=== PATIENT | male | born 1965 | race Caucasian/White ===

== ENCOUNTER 2023-11-28 12:07 | Outpatient (OUT) | payer OTHER, SELFPAY ==
--- NOTE | 2023-11-28 12:55 | P.CN_ITS ---
Consult Note: HPI Data of Consult Patient: new to practice Consult date: 11/28/23 Requesting Physician: Jagruti Villalta MD Primary Care Provider: CATRACHO MOSER Consult Narrative Reason for consult: bilateral upper extremity pain, elbow pain Narrative: 58yom who presents for evaluation. notes persistence of pain in bilateral elbows for several months, as well as pain that radiates into first three fingers of bilateral hands. also goes up to left shoulder. imaging consistent with degenerative changes of elbows. no mri of neck. completed >6 weeks of provider directed home exercise program without benefit. uses nabumetone, with some benefit. denies adverse med side effects. cc:: CC: Jagruti Villalta MD Review of Systems ROS Status of ROS 10 or more systems reviewed and unremark able except as noted in history and below Exam Narrative Exam Narrative: Psych-alert and oriented x 3.? Attentive and appropriate, constitutionally normal, displays normal mood and affect per situation.? There are no obvious deficits in memory, reasoning, or intellect.? Skin-no obvious rashes, bruising, or erythema noted to the patient's area of pain.? Extremities-upper extremities are warm with minimal edema and palpable pulses. Tender to palpation in bilateral elbows. Cervical- tenderness to palpation noted in the cervical spine and paraspinal musculature.? Pain is elicited with flexion, extension, and lateral rotation of the cervical spine.? Range of motion is diminished due to pain. Facet loading maneuvers are negative.? Strength-unremarkable and within normal limits with the exception to the left biceps.? Sensory-no notable sensory deficits in the bilateral upper extremities to touch or pinprick with the exception to decreased sensation to the left C5, 6 dermatomal distribution.? Coordination remains intact.? Gait remains non-antalgic. Assessment and Plan Assessment and Plan (1) Cervical stenosis of spinal canal: (2) Bilateral elbow joint pain: Plan 58yom who presents for evaluation. failed conservative measures, as noted. imaging reviewed, as noted. given symptoms, prudent to attempt bilateral elbow joint injections in office. he is in agreement. would also benefit from cervical mri without contrast, given radiating component in both upper extremities. meds reviewed, no changes. follow up after mri.
== END 2023-11-28 12:08 | disposition home or self-care (01) ==
LOC: PM 12:07
PROVIDERS: PCP Nurse Practitioner Family; Visit Provider Anesthesiology
DX: M48.02 Spinal stenosis, cervical region (principal); M25.521 Pain in right elbow; M25.522 Pain in left elbow
CPT/HCPCS: G0463

== ENCOUNTER 2023-12-12 13:39 | Outpatient (OUT) | payer OTHER, SELFPAY ==
--- OUTSIDE RECORDS SUMMARY | 2023-12-12 14:00 | XMS_ITS ---
Patient Summarization (C-CDA 2.1 CCD) Created on: December 12, 2023 Phong Fernandez : 1965 Sex: Male Author Organization Sample organization Care Team Providers Care Spanish Language Lecturer Name Role Phone RUDDY, DR TANG Admitting Unavailable [facility] [place], DR TANG Attending Unavailable VALATIE, DR DOBSON Primary Care Unavailable VALATIE, DR DOBSON Admitting Unavailable VALATIE, DR DOBSON Attending Unavailable VALATIE, DR DOBSON Primary Care Unavailable VALATIE, DR DOBSON Consulting Unavailable AMARILIS, DR EILZA Plunkett Consulting Unavailable [place], Stephen Primary Care Unavailable John, Roni Morillo Attending Gee Lopez, Roni Morillo Admitting Gee Villalta MD, Jagruti Salazar Unavailable Encounters Encounter Date Encounter Type Care Provider Facility Start: 11-28-2023 End: 11-29-2023 ambulatory Jagruti Villalta MD Facility:[facility] Start: 02-23-2023 End: 02-23-2023 Emergency department patient visit Stephen Lala Facility:[facility] Start: 10-16-2021 End: 10-17-[address] STEPHEN LALA Facility: Start: 02-09-2021 End: 06-11-[address] DOCTOR FOX Facility: Payers Date Payer Category Payer Private Health Insurance 2023 Private Health Insurance [id number] 2023 Self-pay 2019 Unknown [id number] 1965 Unknown [id number] 1965 Unknown [id number] 1965 Unknown [id number] [id number]. [id number] 1959 Unknown [id number] Unknown [id number] [id number] Problems Problem Classification Problem Date Documented Da te Episodic/Chronic Other connective tissue disease (4 sources) Presence of right artificial hip joint; Translations: [PRESENCE RIGHT ARTIFICIAL HIP JOINT] Onset: 02-09-2021 Chronic Other non-traumatic joint disorders (4 sources) Pain in right knee; Translations: [PAIN IN RIGHT KNEE] Onset: 10-16-2021 Episodic Sprains and strains (1 source) Strain of unspecified muscle, fascia and tendon at shoulder and upper arm level, unspecified arm, initial encounter; Translations: [Strain of unspecified muscle, fascia and tendon at shoulder and upper arm level, unspecified arm, initial encounter] Onset: 02-23-2023 Episodic Unclassified (1 source) Pain in left elbow; Translations: [Pain in left elbow] Onset: 02-23-2023 Results Test Name Value Interpretation Reference Range Facil ity XR elbow LT min 3V*on 2022 XR elbow LT min 3V* [place] [address] XRay Report Signed Patient: Phong Fernandez Jr MR#: [id number] : 1965 Acct:[id number] Age/Sex: 58 / M ADM Date: 02/23/23 Loc: ER Room: Type: PRE ER Attending Dr: Copies to: Roni Lopez MD Ordering Provider: Roni Lopez MD Date of Service: 02/23/23 XR/XR elbow LT min 3V*: Extremity Injury, Upper 4 views leftelbow plain film COMPARISON :None HISTORY: Popping sensation left elbow. Continued left elbow pain. ACUTE FINDINGS: None DEGENERATIVE CHANGE: Degenerative marginal spurring. Chronic changes involving the medial condyle. SOFT TISSUE FINDINGS: Unremarkable JOINT EFFUSION: None POSTOP CHANGES: None BONE MINERALIZATION: Adequate XR/XR elbow LT min 3V* IMPRESSION: Degenerative change. No acute bony findings. Impression dictated by: Ashok Quintana M.D.02/23/2023 8:51 AM Dictation Location: [place] [address] Transcribed By: [facility] 02/23/23 0851 Dictated By: Ashok Quintana DO 02/23/23 0850 Signed By: 02/23/23 0851 [facility] Clinical Note 04-08-2022 Note Date & Type Note Facility 10-16-2021 Note PROCEDURE: XR KNEE R T 4V or > HISTORY: Pain in right knee ; chronic medial patellar knee pain COMPARISON: None. FINDINGS: BONES:No fracture, acute abnormality, or significant arthropathy. SOFT TISSUES:No visible soft tissue swelling. EFFUSION:Tiny joint effusion. OTHER: Negative. IMPRESSION: 1. No acute bone abnormality or significant degenerative changes. 2. Tiny joint effusion of uncertain etiology. Electronically authenticated by: ELIZA OLMOS Date: 2021-10-16 12:57 [facility] Summary Purpose Family History No Family History Records FoundNo Family History Records FoundNo Family History Records Found Advance Directives No Advanced Directives Records FoundNo Advanced Directives Records FoundNo Advanced Directives Records Found Additional Source Comments (unrecognized sect ion and content) No Status Records FoundNo Status Records FoundNo Status Records Found INFORMATION SOURCE (unrecogn ized section and content) DATE CREATED AUTHOR 10/26/2021 [facility] DATE CREATED AUTHOR AUTHOR'S ORGANIZ ATION 03/12/2023 [facility] DATE CREATED AUTHOR AUTHOR'S ORGANIZ ATION 12/04/2023 [facility] FOR RECORDS PERTAINING TO PATIENTS WHO ARE OR HAVE BEEN ENROLLED IN A CHEMICAL DEPENDENCY/SUBSTANCEABUSE PROGRAM, SOME INFORMATION MAY BE OMITTED. This clinical summary was aggregated from multiple sources. Caution should be exercised in using it in the provision of clinical care. This summary normalizes information from multiple sources, and as a consequence, information in this document may materially change the coding, format and clinical context of patient data. In addition, data may be omitted in some cases. CLINICAL DECISIONS SHOULD BE BASED ON THE PRIMARY CLINICAL RECORDS. [facility]. provides no warranty or guarantee of the accuracy or completeness of information in this document.
--- NOTE | 2023-12-12 14:17 | P.CN_ITS ---
Consult Note: HPI Data of Consult Patient: known to practice within the last 3 years Consult date: 12/12/23 Requesting Physician: Jagruti Villalta MD Primary Care Provider: CATRACHO MOSER Consult Narrative Reason for consult: bilateral elbow pain Narrative: 58yom who presents for in office injection. continues to have bilateral elbow pain, would like to proceed with bilateral elbow injection. cc:: CC: Jagruti Villalta MD Review of Systems ROS Status of ROS 10 or more systems reviewed and unremark able except as noted in history and below Exam Narrative Exam Narrative: Psych-alert and oriented x 3.? Attentive and appropriate, constitutionally normal, displays normal mood and affect per situation.? There are no obvious deficits in memory, reasoning, or intellect. Extremities-lower extremities are warm with minimal edema and palpable pulses. Elbow - examination of the bilateral elbow reveals tenderness to palpation over the bilateral elbow joint. Pain is elicited with flexion and extension of the elbow both actively and passively.? Coordination remains intact.? Gait remains antalgic. Assessment and Plan Assessment and Plan (1) Bilateral elbow joint pain: Plan 58yom who presents for in office injection. continues to have bilateral elbow pain, would like to proceed with bilateral elbow injections. Procedure: Bilateral elbow joint injection Medications: Bupivacaine 0.25% 2cc, kenalog 40mg x2 I explained the details of the procedure to the patient including the risks, benefits and alternatives. We had an informed discussion and the patient verbalized understanding and signed the consent form. All questions were answered appropriately.? A time out was performed.? After obtaining a comfortable seated position, the left elbow was prepped with alcohol. A syringe containing the above medication was attached to a 27 guage, 1.5 inch needle under strict aseptic technique.?The lateral epicondyle, olecranon process, and radial head were palpated. The center of these points was palpated. The needle was advanced through the subcutaneous tissue towards the joint space at this center point.? The contents of the syringe were gently injected without any resistance. The needle was removed and pressure was applied to the injection site to decrease the incidence of ecchymosis and hematoma formation.? A sterile bandage was applied. The same procedure was then completed on the right side.
== END 2023-12-12 13:40 | disposition home or self-care (01) ==
LOC: PM 13:39
PROVIDERS: PCP Nurse Practitioner Family; Visit Provider Anesthesiology
DX: M25.521 Pain in right elbow (principal); M25.522 Pain in left elbow
CPT/HCPCS: 20605

== ENCOUNTER 2023-12-16 06:46 | Outpatient (OUT) | payer OTHER, SELFPAY ==
--- NOTE | 2023-12-16 06:48 | MR_ITS ---
[address] [address] Patient Name: NERI ROSSI MRN: [id number] date: 1965 Sex: M Assigned Patient Location: MRI Current Patient Location: Accession/Order Number: [id number] Exam Date: 12/16/2023 07:00 Report Date: 12/17/2023 06:55 At the request of: MARLENY JULIAN Procedure: MR cervical spine wo con EXAMINATION: MR cervical spine wo con HISTORY: cervical stenosis ; chronic cervical pain with radiculopathy COMPARISON: No relevant comparison available. TECHNIQUE: A variety of imaging planes and parameters were utilized for visualization of suspected pathology without and/or with intravenous Dotarem contrast based on examination type. FINDINGS: CRANIOCERVICAL AREA: Normal foramen magnum with no Chiari malformation. PARASPINAL AREA: Normal with no visible mass. BONES: Straightening of normal lordotic curvature. No fracture or spondylolisthesis. CORD: Normal caliber, contour, and signal intensity. CERVICAL DISC LEVELS: C2-C3: Early degenerative disc disease is present without focal protrusion or neural impingement. C3-C4: Early degenerative disc disease is present without focal protrusion or neural impingement. C4-C5: Moderate right foramen narrowing secondary to vertebral joint spurring. No significant disc bulging. C5-C6: Mild central canal and moderate bilateral foramen narrowing secondary to mild diffuse disc bulging and slight disc height reduction. Bilateral uncovertebral joint spurring and minimal facet arthropathy. C6-C7: Mild central canal and right foramen narrowing. Moderate left foramen narrowing. Mild diffuse disc bulging with minimal disc height reduction. No vertebral joint spurring and slight degenerative facet arthropathy. C7-T1:. No significant disc/facet abnormality, spinal stenosis, or foraminal stenosis. MR/MR cervical spine wo con IMPRESSION: 1. Straightening of normal lordotic curvature; positioning versus muscle spasm. 2. Mild and moderate foramen narrowing and central canal narrowing C4-C5 through C6-C7 as detailed above. 3. Multiple mucocele/retention cysts incidentally seen within the paranasal maxillary sinuses compatible with chronic sinusitis. Electronically authenticated by: ELIZA OLMOS Date: 12/17/2023 06:55
--- OUTSIDE RECORDS SUMMARY | 2023-12-16 06:49 | XMS_ITS | CCD ---
Author Organization [facility] Care Team Providers Care Embedded Linux Engineer Name Role Phone RUDDY, DR TANG Admitting Unavailable [facility] [place] TANG Attending Unavailable HOUSE, DR DOBSON Primary Care Unavailable HOUSE, DR DOBSON Admitting Unavailable HOUSE, DR DOBSON Attending Unavailable DYESS, DR DOBSON Primary Care Unavailable DYESS, DR DOBSON Consulting Unavailable AMARILIS, DR ELIZA Plunkett Consulting Unavailable [place], Stephen Primary Care Unavailable John, Roni Morillo Attending Unavailable John, Roni Morillo Admitting Unavailable Ambar MONTENEGRO, Jagruti Padilla Attending Unavailable Problems Problem Classification Problem Date Documented Da [...] 3V*on 2022 XR elbow LT min 3V* [facility] Main [place] [address] [place] [address] XRay Report Signed Patient: Phong Fernandez Jr MR#: [id number] : 1965 Acct:[id number] Age/Sex: 58 / M ADM Date: 02/23/23 [...] Ashok Quintana M.D.02/23/2023 8:51 AM Dictation Location: [facility] Transcribed By: [facility] 02/23/23 0851 Dictated By: Ashok Quintana DO 02/23/2350 Signed By: 02/23/2351 [facility] Encounters Encounter Date Encounter Type Care Provider Facility Start: 11-28-2023 End: 11-29-2023 ambulatory Jagruti Villalta MD Facility:[facility] Start: 02-23-2023 End: 02-23-2023 Emergency department patient visit Stephen Lala Facility:[facility] Start: 10-16-2021 End: 10-17-[address] STEPHEN LALA Facility: Start: 02-09-2021 End: 06-11-[address] DOCTOR FOX Facility: Payers Date Payer Category Payer Private Health Insurance 2023 Private Health Insurance [id number] 2023 Self-pay 2019 Unknown [id number] 1965 Unknown [id number] [id number] 1965 Unknown [id number] 1965 Unknown [id number] 2.16. [id number] 1959 Unknown [id number] Unknown [id number] 2.16.8 [id number] Clinical Note 10-16-2021 Note Date & Type Note Facility 10-16-2021 [...] authenticated by: ELIZA OLMOS Date: 2021-10-16 12:57 [facility] Summary Purpose Family History No Family History Records FoundNo Family History Records FoundNo Family History Records Found Advance Directives No Advanced Directives Records FoundNo Advanced Directives Records FoundNo Advanced Directives Records Found Additional Source Comments (unrecognized sect ion and content) No Status Records FoundNo Status Records FoundNo Status Records Found INFORMATION SOURCE (unrecogn ized section and content) DATE CREATED AUTHOR 10/26/2021 [facility] DATE CREATED AUTHOR AUTHOR'S ORGANIZ ATION 03/12/2023 [facility] DATE CREATED AUTHOR AUTHOR'S ORGANIZ ATION 12/04/2023 [facility] FOR RECORDS PERTAINING TO PATIENTS WHO ARE [...] BE BASED ON THE PRIMARY CLINICAL RECORDS. [employer] provides no warranty or guarantee of the accuracy or completeness of information in this document.
== END 2023-12-16 06:47 | disposition home or self-care (01) ==
LOC: MRI 06:46
PROVIDERS: PCP Nurse Practitioner Family; Visit Provider Anesthesiology
DX: M48.02 Spinal stenosis, cervical region (principal); M50.30 Other cervical disc degeneration, unspecified cervical region; J32.4 Chronic pansinusitis
CPT/HCPCS: 72141